=== PATIENT | female | born 1985 | race Caucasian/White ===

== ENCOUNTER 2016-09-17 11:18 | Emergency (ER) | payer OTHER ==
[2016-09-17 11:22] VITALS: RESP 16
--- NOTE | 2016-09-17 13:09 | EDPHY ---
H & P Time Seen by Provider: 09/17/16 12:06 HPI/ROS: CHIEF COMPLAINT: Hives HISTORY OF PRESENT ILLNESS: 31-year-old female presents to the emergency department by private vehicle complaining of diffuse hives intermittently over the last 1 month. Patient states that the rash started earlier this month and initially started on her hands that has spread to her arms, chest and torso and down her legs. It is itchy at times. She has been treating the rash with topical hydrocortisone. She has not had any respiratory distress. She denies dysphagia. Denies tongue swelling. She has never had this problem in the past. She states that the symptoms coincidently started when she was using chemicals to strip the table. She was seen in urgent care today and sent to the emergency department for evaluation. REVIEW OF SYSTEMS: Constitutional: No fever, no chills. Eyes: No double or blurry vision. ENT: No sore throat. Respiratory: No cough, no shortness of breath. Cardiac: No chest pain. Gastrointestinal: No abdominal pain, vomiting or diarrhea. Genitourinary: No dysuria. Musculoskeletal: No neck or back pain. Skin: Rash as above Neurological: No headache. Past Medical/Surgical History: Appendectomy Social History: Smoking Status: Never smoked Physical Exam: General Appearance: Alert, no distress. Eyes: Pupils equal and round. Extraocular motions are all intact. ENT: Mouth: Mucous membranes moist. No uvular swelling. Respiratory: No wheezing, rhonchi, or rales, lungs are clear to auscultation. Cardiovascular: Regular rate and rhythm. Gastrointestinal: Abdomen is soft and nontender, no masses, no rebound or guarding, bowel sounds normal. Neurological: Alert and oriented x 3, cranial nerves II through XII grossly intact Skin: Diffuse erythematous red, raised welts throughout her body from head down to her legs and toes. Blanches to the touch. No vesicles. No pustules. Musculoskeletal: Nontender to palpate along the cervical, thoracic or lumbar spine. Neck is supple. Extremities: Full range of motion and no peripheral edema. Psychiatric: Patient is oriented X 3, there is no agitation. Constitutional: Initial Vital Signs Temperature (C) 36.5 C 09/17/16 11:19 Heart Rate 84 09/17/16 11:19 Respiratory Rate 16 09/17/16 11:19 Blood Pressure 125/90 H 09/17/16 11:19 O2 Sat (%) 10 L 09/17/16 11:19 O2 Delivery Mode Room Air Allergies/Adverse Reactions: No Known Allergies Allergy (Unverified 09/17/16 11:21) Home Medications: Medication Instructions Recorded predniSONE 60 mg PO DAILY 5 Days 09/17/16 Medical Decision Making ED Course/Re-evaluation: 31-year-old female presents to the emergency department with urticaria that has been intermittent for the last 1 month. Clinically this patient is no apparent distress. I do not think IV medications are indicated. The patient will be treated with oral prednisone. She was also referred to an supervisor pipe finishing and will likely need possible skin biopsy. I did consider possible pityriasis rosea although the distribution is not entirely consistent. She has no airway involvement. I do not think the patient needs an EpiPen. She was instructed to return to the emergency department if she developed difficulty swallowing, breathing or any other concerns. Differential Diagnosis: Including but not limited to urticaria, pityriasis rosea, fungal infection, allergic reaction Departure - Departure Disposition: Home, Routine, Self-Care Clinical Impression: Urticaria Condition: Good Instructions: Urticaria (ED) Additional Instructions: Prednisone daily for 5 days. Benadryl 50 mg every 6 hours for itching, rash. Pepcid daily for itching. Return if he develops shortness of breath, difficulty swallowing or breathing, or if you feel worse in any way. Referrals: DARVIN ZEPEDA [Primary Care Provider] - 2-3 days, if not improved Genet Joe MD [[facility] [place] [facility] [place] - As per Instructions (Visual Developer in [place]) Prescriptions: predniSONE 60 mg PO DAILY 5 Days
[2016-09-17 13:29] VITALS: BP 112/76; PULSE 81; TEMP 97.9; O2SAT 98
== END 2016-09-17 13:29 | disposition home or self-care (01) ==
DX: L50.9 Urticaria, unspecified (principal)